=== PATIENT | male | born 2000 | race Caucasian/White ===

== ENCOUNTER 2024-01-03 14:15 | Emergency (ER) | payer SELFPAY ==
[~2024-01-03] VITALS: Ht 160 cm; Wt 75.3 kg
[2024-01-03 14:32] VITALS: BP_SYST 138; PULSE 88; RESP 20; TEMP 98.3; O2SAT 98
[2024-01-03 16:20] VITALS: BP_SYST 132; PULSE 84; RESP 20; TEMP 98.3; O2SAT 98
== END 2024-01-03 16:19 | disposition home or self-care (01) ==
LOC: SED 14:15
DX: R76.11 Nonspecific reaction to tuberculin skin test without active tuberculosis (principal); R21 Rash and other nonspecific skin eruption
CPT/HCPCS: 71045; 99283